=== PATIENT | male | born 1985 | race Caucasian/White ===

== ENCOUNTER 2019-08-19 18:29 | Emergency (ER) | payer SELFPAY ==
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
[2019-08-19] MEDS ORDERED: TETANUS & DIPHTHERIA TOX,ADULT 0.5 ML VIAL ONE (20:17)
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
[2019-08-19 22:47] VITALS: BP 161/108; TEMP 98.1; O2SAT 100
== END 2019-08-19 20:22 | disposition home or self-care (01) ==
LOC: ER 18:29
DX: S13.4XXA Sprain of ligaments of cervical spine, initial encounter (principal); S60.511A Abrasion of right hand, initial encounter; V43.52XA Car driver injured in collision with other type car in traffic accident, initial encounter; W22.11XA Striking against or struck by driver side automobile airbag, initial encounter; Y93.89 Activity, other specified; Y92.410 Unspecified street and highway as the place of occurrence of the external cause; Z23 Encounter for immunization
CPT/HCPCS: 70450; 72125; 90471; 90714; 99284

== ENCOUNTER 2019-09-04 16:58 | Emergency (ER) | payer SELFPAY ==
--- NOTE | 2019-09-04 18:03 | ER ---
Nurse's Notes [facility] Name: Truong Zheng Age: 34 yrs Sex: Male : 1985 Arrival Date: 09/04/2019 Time: 17:00 Bed Waiting Private MD: Diagnosis: Presentation: 09/04 17:20 Presenting complaint: Patient states: "I suddenly just felt tired about 2 hours ago. ca1 Blurry vision on my R eye earlier for about 10 minutes but not right now anymore". Reports headache on the R side. Denies nausea and dizziness. Transition of care: patient was not received from another setting of care. Onset of symptoms was September 04, 2019. Risk Assessment: Do you want to hurt yourself or someone else? Patient reports no desire to harm self or others. Initial Sepsis Screen: Does the patient meet any 2 criteria? No. Patient's initial sepsis screen is negative. Does the patient have a suspected source of infection? No. Patient's initial sepsis screen is negative. Care prior to arrival: None. 17:20 Method Of Arrival: Ambulatory ca1 17:20 Acuity: CHICO 3 ca1 Historical: - Allergies: 17:24 No Known Allergies; ca1 - Home Meds: 17:24 None [Active]; ca1 - PMHx: 17:24 None; ca1 - PSHx: 17:24 None; ca1 - Immunization history:: Adult Immunizations not up to date, Flu vaccine is not up to date. - Social history:: Smoking status: Patient uses tobacco products, smokes one pack cigarettes per day. - Ebola Screening: : Patient negative for fever greater than or equal to 101.5 degrees Fahrenheit, and additional compatible Ebola Virus Disease symptoms Patient denies exposure to infectious person Patient denies travel to an Ebola-affected area in the 21 days before illness onset No symptoms or risks identified at this time. Assessment: 17:39 Reassessment: Called pt from the lobby . No Answer. ca1 17:54 Reassessment: Called from the lobby: No Answer. ca1 Vital Signs: 17:24 BP 142 / 85; Pulse 93; Resp 17 S; Temp 98.7(O); Pulse Ox 96% on R/A; Weight 95.25 kg ca1 (R); Height 5 ft. 8 in. (172.72 cm) (R); Pain 2/10; 17:24 Body Mass Index 31.93 (95.25 kg, 172.72 cm) ca1 ED Course: 17:00 Patient arrived in ED. mr 17:20 Lulu Arnold, RN is Primary Nurse. ca1 17:23 Triage completed. ca1 17:24 Arm band placed on right wrist. ca1 17:37 Humble Magana PA is PHCP. cp 17:37 Humble Braswell MD is Attending Physician. cp 17:58 No provider procedures requiring assistance completed. ss Administered Medications: No medications were administered Outcome: 17:58 Eloped from waiting room, before seeing physician ss 17:58 Patient left the ED. ss Signatures: Alayna RileyGhazal RN RN Humble Magana PA PA Lulu Arnold RN RN ca1 Corrections: (The following items were deleted from the chart) 17:28 17:20 Presenting complaint: Patient states: "I suddenly just felt tired about 2 hours ca1 ago. Blurry vision on my R eye earlier for about 10 minutes but not right now anymore". Reports headache on the R side. Denies nausea and dizziness. ca1
[2019-09-04 19:42] VITALS: BP 142/85; TEMP 98.7; O2SAT 96
== END 2019-09-04 17:58 | disposition left against medical advice (07) ==
LOC: ER 16:58
DX: Z53.21 Procedure and treatment not carried out due to patient leaving prior to being seen by health care provider (principal)
CPT/HCPCS: 99281

== ENCOUNTER 2023-11-07 15:01 | Inpatient (IN) | payer SELFPAY ==
--- OUTSIDE RECORDS SUMMARY | 2023-11-07 15:04 | XMS REPORT | Continuity of Care Document ---
Author Name Unknown Address [address] [facility] [address] [place] [id number] [facility] thconnect Address [address] [facility] [address] [facility] [address] [place] [address] Care Team Providers Care Military Pay Clerk Name Role Phone PCP, PATIENT DOES NOT HAVE A Primary Care Physic bijan Unavailable ALON RAINES Attending Clinician Unavailable Alon Raines MD Attending Clinician ALON RAINES Admitting Clinician Unavailable Allergies, Adverse Reactions, Alerts Allergy Name Allergy Type Status Severity Reaction(s) Onset Date Inactive Date Treating Clinician Comments Source NO KNOWN ALLERGIE S Drug Class Active [facility] Social History Social Habit Start Date Stop Date Quantity Comments Source Sexual orientation [facility] Sex Assigned At 1985 00:00:00 1985 00:00:00 [facility] Smoking Status Start Date Stop Date Source Tobacco smoking consumption unknown [facility] Medications Ordered Medication Name Filled Medication Name Start Date Stop Date Current Medication? Ordering Clinician Indication Dosage Frequency Signature (SIG) Comments Components Source iopamidol (ISOVUE 370-500 mL) injection 85 mL 10-30 05:00: 00 10-30 05:00 :00 No [id number] 2 85mL 85 mL, Intravenou s, ONCE, 1 dose, On Thu10/30/23 at 2300, Routine [facility] Vital Signs Vital Name Observation Time Observation Value Comments S ource Systolic blood pressure 2023-10-31 05:00:00 128 mm[Hg] [facility] Diastolic blood pressure 2023-10-31 05:00:00 84 mm[Hg] [facility] Heart rate 2023-10-31 05:00:00 68 /min [facility] Respiratory rate 2023-10-31 05:00:00 18 /min [facility] Oxygen saturation in Arterial blood by Pulse oximetry 2023-10-31 05:00:00 95 /min [facility] Body temperature 2023-10-31 00:27:00 37.28 [facility] Body height 2023-10-31 00:27:00 172.7 cm [facility] Body weight 2023-10-31 00:27:00 95.255 kg [facility] BMI 2023-10-31 00:27:00 31.93 kg/m2 [facility] Procedures Procedure Date / Time Performed Performing Clinicia n Source CT ANGIOGRAM HEAD 2023-10-31 04:08:21 Alon Raines [facility] CT ANGIOGRAM NECK 2023-10-31 04:08:21 Alon Raines [facility] MAGNESIUM 2023-10-31 02:00:00 Alon Raines [facility] COMP. METABOLIC PANEL ([id number]) 2023-10-31 02:00:00 Alon Raines [facility] CBC WITH DIFF 2023-10-31 02:00:00 Alon Raines [facility] POCT GLUCOSE(AGE >30DAYS) 2023-10-31 02:00:00 Alon Raines [facility] POCT GLUCOSE (AUTOMATED) 2023-10-31 01:57:00 Doctor Unassigned, [place] [facility] CONSENT/REFUSAL FOR DIAGNOSIS AND TREATMENT 2023-10-31 00:23:53 Doctor Unassigned, [place] [facility] Encounters Start Date/Time End Date/Time Encounter Type Admission Type Attending Clinicians Care Facility Care Department Encounter ID Source 2023-10-30 18:31:00 2023-10-31 00:10:00 Emergency X ALON RAINES [facility] ERT [id number] [facility] 2023-10-30 18:31:00 2023-10-31 00:10:00 Emergency Alon Raines [facility] [id number] [facility] Results Test Description Test Time Test Comments Results Resul t Comments Source CT ANGIOGRAM NECK 2 05:24:18 CT ANGIOGRAM HEAD, CT ANGIOGRAM NECK HISTORY: Transient ischemic attack (TIA), right extremity and facialnumbness. TECHNIQUE: Axial CT imaging of the head and neck was obtained after theadministration of contrast. Coronal and sagittal reformats wereconstructed. COMPARISON: ?Same day noncontrast CT head. FINDINGS: CTA HEAD Slight left vertebral dominance. The PICA origin is visualized bilaterally.Extradura l right PICA origin. The basilar artery is normal in caliber. Thesuperior cerebellar arteries are unremarkable. The posterior cerebralarteries are unremarkable. No sizable posterior communicating arteries arevisualized. The distal cervical, petrous, cavernous and supraclinoid internal carotidarteries are patent. Minimal atherosclerotic plaques at the left cavernousICA. The anterior and middle cerebral arteries are unremarkable. Ananterior communicating artery is visualized. The dural venous sinuses are patent. CTA NECK Classic three-vessel branching anatomy of the aortic arch. The ostia ofmajor vessels are free of stenosis. The common carotids and internal carotids are visualized and patent. Noluminal narrowing or measurable stenosis by NASCET classification. The vertebral arteries originate from subclavian arteries and are patentthroughout their entire cervical length. The ostia are free of stenosis.Mild redundancy of right V2 vertebral artery at C3-C4 level (12:73). Cervical soft tissues: Nonspecific mildly prominent lymph nodes throughoutthe cervical spaces on both sides, probably reactive. Mildly prominentpalatine tonsils and adenoids for patient's age. Scattered multiple dental cavities. Lung apices: Mild central bronchial wall thickening, right greater thanleft, possibly mild bronchitis type changes. Suspected mild dilation of thepulmonary trunk. Cervical spine: Straightening of normal cervical lordosis. Milduncovertebral hypertrophy at C3-C4 and C5-C6 levels. [facility] CT ANGIOGRAM HEAD 2024-03-0 2 05:24:18 CT ANGIOGRAM HEAD, CT ANGIOGRAM NECK HISTORY: Transient ischemic attack (TIA), right extremity and facialnumbness. TECHNIQUE: Axial CT imaging of the head and neck was obtained after theadministration of contrast. Coronal and sagittal reformats wereconstructed. COMPARISON: ?Same day noncontrast CT head. FINDINGS: CTA HEAD Slight left vertebral dominance. The PICA origin is visualized bilaterally.Extradura l right PICA origin. The basilar artery is normal in caliber. Thesuperior cerebellar arteries are unremarkable. The posterior cerebralarteries are unremarkable. No sizable posterior communicating arteries arevisualized. The distal cervical, petrous, cavernous and supraclinoid internal carotidarteries are patent. Minimal atherosclerotic plaques at the left cavernousICA. The anterior and middle cerebral arteries are unremarkable. Ananterior communicating artery is visualized. The dural venous sinuses are patent. CTA NECK Classic three-vessel branching anatomy of the aortic arch. The ostia ofmajor vessels are free of stenosis. The common carotids and internal carotids are visualized and patent. Noluminal narrowing or measurable stenosis by NASCET classification. The vertebral arteries originate from subclavian arteries and are patentthroughout their entire cervical length. The ostia are free of stenosis.Mild redundancy of right V2 vertebral artery at C3-C4 level (12:73). Cervical soft tissues: Nonspecific mildly prominent lymph nodes throughoutthe cervical spaces on both sides, probably reactive. Mildly prominentpalatine tonsils and adenoids for patient's age. Scattered multiple dental cavities. Lung apices: Mild central bronchial wall thickening, right greater thanleft, possibly mild bronchitis type changes. Suspected mild dilation of thepulmonary trunk. Cervical spine: Straightening of normal cervical lordosis. Milduncovertebral hypertrophy at C3-C4 and C5-C6 levels. [facility] ([id number])2023-10-31 02:56:44* Test Item Value Reference Range Interpretation Comme nts NA (test code = 9807961757) 142 mmol/L 135-145 K (test code = 1658211794) 3.7 mmol/L 3.5-5.0 CL (test code = 6144136146) 105 mmol/L 98-108 CO2 TOTAL (test code = 2171910142) 28 mmol/L 23-31 AGAP (test code = 9053173606) 9 2-16 BUN (test code = 2195612771) 14 mg/dL 7-23 GLUCOSE (test code = 5804350759) 93 mg/dL 70-110 CREATININE (test code = 2160-0) 0.79 mg/dL 0.60-1.25 TOTAL BILI (test code = 8641201967) 0.4 mg/dL 0.1-1.1 CALCIUM (test code = 9291864891) 9.7 mg/dL 8.6-10.6 T PROTEIN (test code = 3382273161) 8.6 g/dL 6.3-8.2 H ALBUMIN (test code = 8229973413) 5.0 g/dL 3.5-5.0 ALK PHOS (test code = 7194129155) 48 U/L 34-122 ALTv (test code = 1742-6) 68 U/L 5-50 H AST(SGOT) (test code = 4585061062) 36 U/L 13-40 eGFR (test code = 81870-7) 115.9 mL/min/1.73m2 CKD-EPI eGFR (2020). Assuming creatinine has been stable day-to-day for at least three months, the eGFR indicates Category G1 (>= 90 mL/min/1.73 m2) Lab Interpretation (test code = 77967-4) Abnormal [facility] GLUCOSE(AGE >30DAYS)2023-10-31 02:00:00* Test Item Value Reference Range Interpretation Comme nts POCT Glu (age>30days) (test code = 3342) 98 mg/dL 70-110 Lab Interpretation (test cod e = 91063-0) Normal [facility] GLUCOSE (AUTOMATED)2023-10-31 01:59:35* Test Item Value Reference Range Interpretation Comme nts POCT GLU (test code = 4731359659) 98 mg/dL 70-110 Lab Interpretation (test cod e = 79672-4) Normal [facility] Notes Date/Time Note Provider Source 2023-10-30 23:59:05 rurKPfBQndwW68F3IiQl a2UFECzxGj7J8W tw9H8Te1+5r7r0QMcqG7028pJiJKfl2056 -03-01T23:59:05 Pt discharged home following ERP eval. Pt given all education and information regarding s/s of worsening condition as well as the importance of follow up, pt verbalized understanding. Alert and ambulatory to pov with family, vss. No further concerns. 49736-2Oadkyirzv department XighXR6998-89-90D18:00:30[facility] [id number] .[id number] for patient eydv01276-1UtkaZCEPPHAKRIUAliqekaj d C-CDA narrative [id number] A Paul RN[address][id number] 04AZSBZWWROZMUJFULCPEWEQ4870-49-99 T00:00:301.2.840.211586.1.72.3.15| [id number] John Underwood RN [facility] 2023-10-30 18:25:06 Ve2kOjPXcIqJdbhAN7TI mJE65bsOy9+Xcs cyagEtMu4Y5RjeVNPetHGoUZSL5yNj5047 -03-01T18:25:06 Patient reports that approx 20 minutes prior to arrival patient began to have right leg numbness which progressed to right arm numbness and then to his face. Patient states that he began to feel lightheaded. Patient was with brother Niall who states that patient was able to talk during this time and was able to move both of his arms and squeeze. He had patient stick out tongue and noticed no problems. At triage patient ambulating with a steady gait and able to move all extremitiesMed Hx: None 54616-1Rawfhcyas department Triage ovirDW1083-03-49U27:27:22[facility] Triage [id number] .[id number] for patient arfr83739-4Vgetntfau department NoteLNNARRATIVEFormatted C-CDA narrative textUT88 Martin StreetMm[id number] 95NJCODZMLPVYMWZAFOXASBL5608-97-68 T18:27:221.2.840.047487.1.72.3.15| [id number] [facility]"
[2023-11-07] MEDS ORDERED: NA CHLORIDE 0.9% 1,000 ML ONE (15:16)
[2023-11-07 15:34] LABS: Absolute Basophils 0.1 K/uL (0-0.5); Absolute Eosinophils 0.2 K/uL (0-0.5); Absolute Lymphocytes (CBC) 5.5 K/uL (0.7-4.9); Absolute Monocytes 0.9 K/uL (0.1-1.3); Absolute Neutrophil 7.9 K/uL (1.8-8.0); Basophils % 0.6 % (0-1.3); Eosinophils % 1.5 % (0-4.4); Hematocrit 42.3 % (39.6-49.0); Hemoglobin 14.4 g/dL (13.6-17.9); Lymphocytes % 37.8 % (15.3-44.8); MCH 31.3 pg (27.0-35.0); MCV 92.1 fL (80-100); Monocytes % 5.9 % (3.3-12.3); Neutrophils % 54.2 % (41.7-73.7); Platelets 393 thou/uL (152-406); RBC Red Blood Cell Count 4.59 M/uL (4.33-5.43); Red Cell Distribution Width 14.3 % (12.1-15.2)
[2023-11-07 15:44] LABS: PT Prothrombin Time 11.1 SECONDS (9.5-12.5); Protime INR 1.01
[2023-11-07 16:02] LABS: ALT/SGPT 62 U/L (16-61); AST/SGOT 25 U/L (15-37); Albumin/Globulin Ratio 1.1 (1.1-1.8); Alkaline Phosphatase 42 U/L (45-117); Anion Gap 7.7 mEq/L (5.0-15.0); BUN Blood Urea Nitrogen 21 mg/dL (7-18); Bicarbonate 26 mEq/L (21-32); Bilirubin Total 0.2 mg/dL (0.2-1.0); Globulin 3.6 g/dL (2.3-3.5); Glomerular Filtration Rate 94 ml/min (=/>90); Glucose Level 120 mg/dL (74-106); Lipase 23 U/L (13-75); Magnesium 2.1 mg/dL (1.6-2.4); NT PRO-BNP 15 pg/mL (<125); Potassium 3.7 mEq/L (3.5-5.1); Protein, Total 7.6 g/dL (6.4-8.2); Sodium Level 139 mEq/L (136-145); Troponin High Sensitivity 4.4 pg/mL (<58.9)
[2023-11-07 16:10] LABS: Bilirubin Direct < 0.1 mg/dL (0-0.2); Bilirubin Indirect, Calculated ND mg/dL (0.2-0.8)
--- NOTE | 2023-11-07 16:17 | RAD REPORT ---
EXAM DESCRIPTION: RAD - Chest Single View - 11/07/2023 3:58 pm CLINICAL HISTORY: CHEST PAIN COMPARISON: No comparisons FINDINGS: Lines: None. Lungs: No evidence of edema or pneumonia. Pleural: No significant pleural effusions or pneumothorax. Cardiac: The heart size is within normal limits. Mediastinum: Within normal limits. Bones: No acute fractures. Other: None IMPRESSION: No acute cardiopulmonary disease.
--- NOTE | 2023-11-07 16:43 | RAD REPORT ---
EXAM DESCRIPTION: CT - Head Brain Wo Cont - 11/07/2023 4:32 pm CLINICAL HISTORY: Dizziness;Headache COMPARISON: No comparisons TECHNIQUE: All CT scans are performed using dose optimization technique as appropriate and may inclu de automated exposure control or mA/KV adjustment according to patient size. FINDINGS: No intracranial hemorrhage, hydrocephalus or extra-axial fluid collection.No areas of brai n edema or evidence of midline shift. The paranasal sinuses and mastoids are clear. The calvarium is intact. IMPRESSION: No acute intracranial abnormality.
--- NOTE | 2023-11-07 16:55 | RAD REPORT ---
EXAM DESCRIPTION: CTAngio Aorta For Dissection - 11/07/2023 4:41 pm CLINICAL HISTORY: pe;Dissection COMPARISON: No comparisons TECHNIQUE: CTA of the chest, abdomen, and pelvis was performed. 3D maximum intensity pixel (MIP) rec onstructions were created of the aorta. All CT scans are performed using dose optimization technique as appropriate and may include automated exposure control or mA/KV adjustment according to patient size. FINDINGS: Thorax: Chest Wall: No abnormal mass Lungs: No acute abnormality. Calcified left lower lobe nodules . Pleura: No effusions or pneumothorax. Emelyn/Mediastinum: No lymphadenopathy. Aorta/Pulmonary Arteries: Unremarkable. Specifically, no aortic aneurysm or dissection. No central pu lmonary embolus. Heart: Normal size. Abdomen/Pelvis: Liver: High attenuation lesion left hepatic lobe likely reflecting a small flash fill hemangioma. Hep atic steatosis. Biliary: No biliary ductal dilatation. Stomach: No significant focal abnormality. Duodenum: No significant focal abnormality. Pancreas: No significant abnormality. Spleen: No significant abnormality. Adrenal: No suspicious lesions. Kidney/ureter: No hydronephrosis. No renal calculi. Retroperitoneum: No retroperitoneal adenopathy. Vascular: No aneurysm. Atherosclerosis. Bowel: No significant focal abnormality. The appendix . Peritoneum: No ascites or free air. Fat containing right inguinal hernia Bladder: Grossly unremarkable. Reproductive: No adnexal masses. Bones: No acute fracture. Other: n/a IMPRESSION: No aortic aneurysm or dissection identified. No central pulmonary embolus. No acute find ings within the chest, abdomen, or pelvis. Incidental findings as noted above.
[2023-11-07 17:00] LABS: Specific Gravity 1.028 (1.005-1.030); Urine Bilirubin NEGATIVE (Negative); Urine Blood Negative (Negative); Urine Clarity Clear (Clear); Urine Color Colorless (Yellow); Urine Glucose NEGATIVE (Negative); Urine Protein NEGATIVE (Negative); Urine Urobilinogen Normal (Normal); Urine pH 7.5 (5.0-7.0)
[2023-11-07 17:10] LABS: Barbiturates NEGATIVE (NEGATIVE); Benzodiazepines NEGATIVE (NEGATIVE); Cocaine NEGATIVE (NEGATIVE); METHAMPHETAM NEGATIVE (NEGATIVE); Methadone NEGATIVE (NEGATIVE); Opiates NEGATIVE (NEGATIVE); Phencyclidine NEGATIVE (NEGATIVE); THC Cannibis NEGATIVE (NEGATIVE)
--- NOTE | 2023-11-07 17:13 | ER ---
Nurse's Notes [facility] Name: Truong Zheng Age: 38 yrs Sex: Male : 1985 Arrival Date: 11/07/2023 Time: 15:01 Bed 19 Private MD: Diagnosis: Chest pain, unspecified;Abnormal electrocardiogram [ECG] [EKG];Elevated white blood cell count Presentation: 11/06 15:15 Chief complaint: Left sided chest pain x 4 days. Intermittent left sided numbness and hb weakness x 1 week. Coronavirus screen: At this time, the client does not indicate any symptoms associated with coronavirus-19. Ebola Screen: No symptoms or risks identified at this time. Initial Sepsis Screen: Does the patient meet any 2 criteria? No. Patient's initial sepsis screen is negative. Does the patient have a suspected source of infection? No. Patient's initial sepsis screen is negative. Risk Assessment: Do you want to hurt yourself or someone else? Patient reports no desire to harm self or others. Onset of symptoms was October 30, 2023. 15:15 Method Of Arrival: Ambulatory hb 15:15 Acuity: CHICO 3 hb Triage Assessment: 15:17 General: Appears in no apparent distress. Behavior is calm, cooperative. Pain: Pain hb currently is 5 out of 10 on a pain scale. Neuro: Level of Consciousness is awake, alert, obeys commands, Oriented to person, place, time, situation. Cardiovascular: Reports chest pain, Patient's skin is warm and dry. Respiratory: Respiratory effort is even, unlabored, Respiratory pattern is regular, symmetrical. Historical: - Allergies: 15:17 No Known Allergies; hb - Home Meds: 15:17 None [Active]; hb - PMHx: 15:17 None; hb - PSHx: 15:17 None; hb - Immunization history:: Adult Immunizations up to date. - Social history:: Smoking status: Patient reports the use of cigarette tobacco products. Screenin:27 [facility] ED Fall Risk Assessment (Adult) History of falling in the last 3 months, as6 including since admission No falls in past 3 months (0 pts) Confusion or Disorientation No (0 pts) Intoxicated or Sedated No (0 pts) Impaired Gait No (0 pts) Mobility Assist Device Used No (0 pt) Altered Elimination No (0 pt) Score/Fall Risk Level 0 - 2 = Low Risk Oriented to surroundings, Maintained a safe environment, Educated pt \T\ family on fall prevention, incl call for assistance when getting out of bed, Assessed \T\ reinforced patient's understanding of fall precautions, Hourly rounding (assess needs \T\ fall precautionary measures) done. Abuse screen: Denies threats or abuse. Denies injuries from another. Nutritional screening: No deficits noted. Tuberculosis screening: No symptoms or risk factors identified. Assessment: 15:27 General: Appears in no apparent distress. comfortable, Behavior is calm, cooperative. as6 Pain: Complains of pain in chest. Pain: Pain does not radiate. Neuro: Level of Consciousness is awake, alert, obeys commands, Oriented to person, place, time, situation, Reports numbness in right arm, left arm, right leg and left leg. Cardiovascular: Reports chest pain. Cardiovascular: Capillary refill < 3 seconds Patient's skin is warm and dry. Respiratory: Airway is patent Trachea midline Respiratory effort is even, unlabored, Respiratory pattern is regular, symmetrical, Denies shortness of breath. GI: No deficits noted. No signs and/or symptoms were reported involving the gastrointestinal system. : No deficits noted. No signs and/or symptoms were reported regarding the genitourinary system. EENT: No deficits noted. No signs and/or symptoms were reported regarding the EENT system. Derm: Skin is intact, is healthy with good turgor. Musculoskeletal: Circulation, motion, and sensation intact. 16:08 Reassessment: Patient appears in no apparent distress at this time. Patient and/or as6 family updated on plan of care and expected duration. Pain level reassessed. Patient is alert, oriented x 3, equal unlabored respirations, skin warm/dry/pink. 17:09 Reassessment: Patient appears in no apparent distress at this time. as6 18:33 Reassessment: Patient appears in no apparent distress at this time. Patient and/or as6 family updated on plan of care and expected duration. Pain level reassessed. Patient is alert, oriented x 3, equal unlabored respirations, skin warm/dry/pink. 19:30 Reassessment: Patient appears in no apparent distress at this time. Patient and/or nj1 family updated on plan of care and expected duration. Pain level reassessed. Patient is alert, oriented x 3, equal unlabored respirations, skin warm/dry/pink. Vital Signs: 15:15 BP 176 / 96; Pulse 85; Resp 16; Temp 98.1; Pulse Ox 100% on R/A; Weight 97.07 kg; hb Height 5 ft. 8 in. ; Pain 5/10; 16:07 BP 132 / 75; Pulse 64; Resp 19 S; Pulse Ox 97% on R/A; as6 17:08 BP 163 / 92; Pulse 57; Resp 16 S; Pulse Ox 99% on R/A; as6 18:32 BP 132 / 87; Pulse 69; Resp 18 S; Pulse Ox 98% on R/A; as6 19:30 BP 121 / 78; Pulse 47; Resp 13; Pulse Ox 97% on R/A; Pain 3/10; nj1 15:15 Body Mass Index 32.54 (97.07 kg, 172.72 cm) hb 15:15 Pain Scale: Adult hb 19:30 Pain Scale: Adult nj1 ED Course: 14:58 EKG done, by ED staff, reviewed by Humble Braswell MD. hb 15:02 Patient arrived in ED. rg4 15:05 Humble Braswell MD is Attending Physician. erika 15:12 Chuck Peterson, KINGSLEY is Primary Nurse. as6 15:17 Triage completed. hb 15:17 Arm band placed on. hb 15:18 Patient maintains SpO2 saturation greater than 95% on room air. hb 15:27 Placed in gown. Bed in low position. Call light in reach. Side rails up X2. Client as6 placed on continuous cardiac and pulse oximetry monitoring. NIBP monitoring applied. crayon painter on. 15:27 Initial lab(s) drawn, by nh, sent to lab. Inserted saline lock: 20 gauge in right as6 antecubital area, using aseptic technique. Blood collected. 16:00 XRAY Chest (1 view) In Process Unspecified. EDMS 16:08 Warm blanket given. as6 16:34 CT Head Brain wo Cont In Process Unspecified. EDMS 16:43 CT Aorta for Dissection In Process Unspecified. EDMS 17:11 Shelton Norris MD is Hospitalizing Provider. [facility] 18:32 Provided Education on: need for admit. as6 18:32 No provider procedures requiring assistance completed. Patient admitted, IV remains in as6 place. Administered Medications: 15:26 Drug: NS 0.9% IV 1000 ml IV at 125 ml/hr continuous Route: IV; Rate: 125 ml/hr; Site: as6 right antecubital; 18:31 Follow up: Response: No adverse reaction; IV Status: Infusion continued upon admission; as6 IV Intake: 300ml 17:36 Drug: Aspirin PO Chewable Tablet 324 mg PO once; 81 mg tablets x 4 Route: PO; as6 18:31 Follow up: Response: No adverse reaction as6 17:36 Drug: Famotidine IVP 20 mg IVP once; dilute with 10 mL 0.9% NaCl; give over 2 minutes as6 Route: IVP; Site: right antecubital; 18:31 Follow up: Response: No adverse reaction as6 17:37 Drug: Metoprolol PO 25 mg PO once Route: PO; as6 18:31 Follow up: Response: No adverse reaction as6 Medication: 15:27 VIS not applicable for this client. as6 Intake: 18:31 IV: 300ml; Total: 300ml. as6 Outcome: 17:13 Decision to Hospitalize by Provider. erika 18:32 Condition: stable as6 18:32 Instructed on the need for admit, 19:30 Admitted to Med/surg accompanied by tech, via wheelchair, room 219, Report called to razia Castelan RN 19:44 Patient left the ED. razia Signatures: Dispatcher [employer] EDUT Humble Braswell MD MD cha Baxter, Heather, Jolie Conway RN rg4 Chuck Peterson RN RN as6 Blanche Candelaria RN RN nj1
--- NOTE | 2023-11-07 17:13 | EDPHYS ---
Physician Documentation [facility] Name: Truong Zheng Age: 38 yrs Sex: Male : 1985 Arrival Date: 11/07/2023 Time: 15:01 Bed 19 Private MD: ED Physician Humble Braswell HPI: 11/06 15:38 This 38 yrs old Male presents to ER via Ambulatory with complaints of Chest erika Pain. 15:38 The patient or guardian reports pain. The complaints affect the right hand diffusely. erika Context: The problem was sustained at home, resulted from an unknown cause. Historical: - Allergies: 15:17 No Known Allergies; hb - Home Meds: 15:17 None [Active]; hb - PMHx: 15:17 None; hb - PSHx: 15:17 None; hb - Immunization history:: Adult Immunizations up to date. - Social history:: Smoking status: Patient reports the use of cigarette tobacco products. ROS: 15:39 Constitutional: Negative for fever, chills, and weight loss, Eyes: Negative for injury, erika pain, redness, and discharge, ENT: Negative for injury, pain, and discharge, Neck: Negative for injury, pain, and swelling, Respiratory: Negative for shortness of breath, cough, wheezing, and pleuritic chest pain, Abdomen/GI: Negative for abdominal pain, nausea, vomiting, diarrhea, and constipation, Back: Negative for injury and pain, : Negative for injury, bleeding, discharge, and swelling, MS/Extremity: Negative for injury and deformity, Skin: Negative for injury, rash, and discoloration, Neuro: Negative for headache, weakness, numbness, tingling, and seizure, Psych: Negative for depression, anxiety, suicide ideation, homicidal ideation, and hallucinations, Allergy/Immunology: Negative for hives, rash, and allergies, Endocrine: Negative for neck swelling, polydipsia, polyuria, polyphagia, and marked weight changes, Hematologic/Lymphatic: Negative for swollen nodes, abnormal bleeding, and unusual bruising, 15:39 Cardiovascular: Positive for chest pain, Exam: 15:39 Constitutional: This is a well developed, well nourished patient who is awake, alert, erika and in no acute distress. Head/Face: Normocephalic, atraumatic. Eyes: Pupils equal round and reactive to light, extra-ocular motions intact. Lids and lashes normal. Conjunctiva and sclera are non-icteric and not injected. Cornea within normal limits. Periorbital areas with no swelling, redness, or edema. ENT: Nares patent. No nasal discharge, no septal abnormalities noted. Tympanic membranes are normal and external auditory canals are clear. Oropharynx with no redness, swelling, or masses, exudates, or evidence of obstruction, uvula midline. Mucous membranes moist. Neck: Trachea midline, no thyromegaly or masses palpated, and no cervical lymphadenopathy. Supple, full range of motion without nuchal rigidity, or vertebral point tenderness. No Meningismus. Chest/axilla: Normal chest wall appearance and motion. Nontender with no deformity. No lesions are appreciated. Cardiovascular: Regular rate and rhythm with a normal S1 and S2. No gallops, murmurs, or rubs. Normal PMI, no JVD. No pulse deficits. Respiratory: Lungs have equal breath sounds bilaterally, clear to auscultation and percussion. No rales, rhonchi or wheezes noted. No increased work of breathing, no retractions or nasal flaring. Abdomen/GI: Soft, non-tender, with normal bowel sounds. No distension or tympany. No guarding or rebound. No evidence of tenderness throughout. Back: No spinal tenderness. No costovertebral tenderness. Full range of motion. Male : Normal genitalia with no discharge or lesions. Skin: Warm, dry with normal turgor. Normal color with no rashes, no lesions, and no evidence of cellulitis. MS/ Extremity: Pulses equal, no cyanosis. Neurovascular intact. Full, normal range of motion. Neuro: Awake and alert, GCS 15, oriented to person, place, time, and situation. Cranial nerves II-XII grossly intact. Motor strength 5/5 in all extremities. Sensory grossly intact. Cerebellar exam normal. Normal gait. Psych: Awake, alert, with orientation to person, place and time. Behavior, mood, and affect are within normal limits. 15:39 ECG was reviewed by the Attending Physician. 17:03 Radiologist reports: NEG erika Vital Signs: 15:15 BP 176 / 96; Pulse 85; Resp 16; Temp 98.1; Pulse Ox 100% on R/A; Weight 97.07 kg; hb Height 5 ft. 8 in. ; Pain 5/10; 16:07 BP 132 / 75; Pulse 64; Resp 19 S; Pulse Ox 97% on R/A; as6 17:08 BP 163 / 92; Pulse 57; Resp 16 S; Pulse Ox 99% on R/A; as6 18:32 BP 132 / 87; Pulse 69; Resp 18 S; Pulse Ox 98% on R/A; as6 19:30 BP 121 / 78; Pulse 47; Resp 13; Pulse Ox 97% on R/A; Pain 3/10; nj1 15:15 Body Mass Index 32.54 (97.07 kg, 172.72 cm) hb 15:15 Pain Scale: Adult hb 19:30 Pain Scale: Adult nj1 MDM: 15:05 Patient medically screened. erika 15:42 HEART Score: History: Slightly Suspicious (0), ECG: Non specific repolarization erika disturbance / LBTB / PM (1), Age: > 45 and < 65 years (1), Risk Factors: 1 or 2 risk factors (1), [Hypertension] [+ Family HX] Troponin: < or = 1 x Normal Limit (0). RICHARD Risk Score: TOTAL SCORE = 0. Data reviewed: vital signs, nurses notes, lab test result(s), EKG, radiologic studies, CT scan, plain films. Consideration of Admission/Observation Escalation of care including admission/observation considered. I considered the following discharge prescriptions or medication management in the emergency department Medications were administered in the Emergency Department. See 15:07 Order name: Basic Metabolic Panel; Complete Time: 16:12 [facility] 11/06 15:07 Order name: CBC with Diff; Complete Time: 15:46 [facility] 11/06 15:07 Order name: LFT's; Complete Time: 16:12 [facility] 11/06 15:07 Order name: Magnesium; Complete Time: 16:12 [facility] 11/06 15:07 Order name: NT PRO-BNP; Complete Time: 16:12 erika 11/06 15:07 Order name: PT-INR; Complete Time: 15:46 erika 11/06 15:07 Order name: Troponin HS; Complete Time: 16:12 erika 11/06 15:07 Order name: Lipase; Complete Time: 16:12 [facility] 11/06 15:07 Order name: Urinalysis w/ reflexes; Complete Time: 17:00 erika 11/06 15:07 Order name: UDS erika 11/06 17:39 Order name: Urinalysis w/ reflexes EDMS 11/06 17:39 Order name: Basic Metabolic Panel EDMS 11/06 17:39 Order name: Basic Metabolic Panel EDMS 11/06 17:39 Order name: CBC with Automated Diff EDMS 11/06 17:39 Order name: CBC with Automated Diff EDMS 11/06 17:39 Order name: Magnesium EDMS 11/06 17:39 Order name: Magnesium EDMS 11/06 17:39 Order name: Troponin High Sensitivity EDMS 11/06 17:39 Order name: Troponin High Sensitivity EDMS 11/06 17:39 Order name: Troponin High Sensitivity EDMS 11/06 17:39 Order name: Troponin High Sensitivity EDMS 11/06 17:41 Order name: Lipid Profile EDMS 11/06 17:41 Order name: Lipid Profile EDMS 11/06 15:07 Order name: XRAY Chest (1 view); Complete Time: 17:00 [facility] 11/06 15:07 Order name: CT Aorta for Dissection; Complete Time: 17:00 [facility] 11/06 15:07 Order name: CT Head Brain wo Cont; Complete Time: 17:00 [facility] 11/06 15:07 Order name: EKG; Complete Time: 15:08 [facility] 11/06 17:41 Order name: EKG Electrocardiogram EDWA 11/06 17:41 Order name: EKG Electrocardiogram EDWA 11/06 15:07 Order name: Cardiac monitoring; Complete Time: 15:12 [facility] 11/06 15:07 Order name: EKG - Nurse/Tech; Complete Time: 15:12 [facility] 11/06 15:07 Order name: IV Saline Lock; Complete Time: 15:26 [facility] 11/06 15:07 Order name: Labs collected and sent; Complete Time: 15:26 [facility] 11/06 15:07 Order name: O2 Per Protocol; Complete Time: 15:13 [facility] 11/06 15:07 Order name: O2 Sat Monitoring; Complete Time: 15:13 [facility] EC:39 Rate is 74 beats/min. Rhythm is regular. QRS [place] is Normal. [place] interval is normal. QRS erika interval is normal. QT interval is normal. No Q waves. T waves are Normal. T waves are Inverted in leads II, aVF. No ST changes noted. Clinical impression: NSR w/ Non-specific ST/T Changes. Administered Medications: 15:26 Drug: NS 0.9% IV 1000 ml IV at 125 ml/hr continuous Route: IV; Rate: 125 ml/hr; Site: as6 right antecubital; 18:31 Follow up: Response: No adverse reaction; IV Status: Infusion continued upon admission; as6 IV Intake: 300ml 17:36 Drug: Aspirin PO Chewable Tablet 324 mg PO once; 81 mg tablets x 4 Route: PO; as6 18:31 Follow up: Response: No adverse reaction as6 17:36 Drug: Famotidine IVP 20 mg IVP once; dilute with 10 mL 0.9% NaCl; give over 2 minutes as6 Route: IVP; Site: right antecubital; 18:31 Follow up: Response: No adverse reaction as6 17:37 Drug: Metoprolol PO 25 mg PO once Route: PO; as6 18:31 Follow up: Response: No adverse reaction as6 Disposition Summary: 11/07/23 17:13 Hospitalization Ordered Notes: Hospitalization Status: Observation erika Provider: Shelton Norris cha Location: Telemetry/MedSurg (observation) erika Condition: Stable erika Problem: new erika Symptoms: have improved erika Bed/Room Type: Standard erika Room Assignment: 219(11/07/23 19:19) rv1 Diagnosis - Chest pain, unspecified erika - Abnormal electrocardiogram [ECG] [EKG] erika - Elevated white blood cell count erika Forms: - Medication Reconciliation Form erika - SBAR form erika - Leadership Thank You Letter erika Signatures: Dispatcher [employer] Humble Gunter MD MD cha Baxter, Heather, RN RN hb Slawson, Ashby, RN RN asAngelina Santo rv1 Corrections: (The following items were deleted from the chart) 19:19 17:13 erika rv1
[2023-11-07] MEDS ORDERED: ASPIRIN 81 MG CHEWABLE TABLET ONE (17:32)
[2023-11-07] MEDS ORDERED: METOPROLOL TAR 25 MG TAB ONE (17:32)
--- NOTE | 2023-11-07 17:32 | P.HP ---
Certification for Inpatient Patient admitted to: Observation With expected LOS: <2 Midnights <Swati Ricci - Last Filed: 11/07/23 17:57> Patient History Date of Service: 11/07/23 Reason for admission: Chest pain History of Present Illness: 38-year-old male presents to the ER with chest pain. He reports chest pain substernal, he reports left sidede numbess this week, arm, leg, that resolved, he denies injury, no reported, dizziness, nausea vomiting diarrhea plan to admit for chest pain rule out [place]. Hypertensive blood pressure 176/96,; Pulse 85; Resp 16; Temp 98.1; Pulse Ox 100% on R/A; Weight 97.07 kg; Height 5 ft. 8 in. ; Pain 5/10; EKG nonspecific ST changes 74 beats/min. Rhythm is regular. QRS [place] is Normal. [place] interval is normal. QRS interval is normal. QT interval is normal. No Q waves. T waves are Normal. T waves ar Inverted in leads II, aVF. No ST changes noted. Clinical impression: NSR w/ Non-specific ST/T Changes. Laboratory evaluation mild leukocytosis 14.60 transaminitis ALT 62 UA negative, UDS negative, chest x-rayMPRESSION: No acute cardiopulmonary disease. CT of the head IMPRESSION: No acute intracranial abnormality. CT chest rule out dissection IMPRESSION: No aortic aneurysm or dissection identified. No central pulmonary embolus. No acute findings within the chest, abdomen, or pelvis.Incidental findings as noted above. Troponin normal 4.4, BNP normal 15, lipase normal 23 - Past Medical/Surgical History Past Medical History: Patient denies medical history Past Surgical History: Patient denies surgical history - Social History Smoking Status: Current some day smoker Alcohol use: Yes CD- Drugs: No Caffeine use: Yes Place of Residence: Home <Swati Ricci - Last Filed: 11/07/23 17:57> Date of Service: 11/08/23 <Shelton Norris - Last Filed: 11/08/23 10:10> Allergies No Known Allergies Allergy (Unverified 07/22/12 22:07) Home Medications: NK [No Home Meds] 11/07/23 Review of Systems Per HPI <Swati Ricci - Last Filed: 11/07/23 17:57> Physical Examination - Physical Exam General: Alert, In no apparent distress, Oriented x3 HEENT: Atraumatic, Normocephalic Neck: Supple, JVD not distended Respiratory: Clear to auscultation bilaterally, Normal air movement Cardiovascular: No edema, Normal pulses Capillary refill: <2 Seconds Gastrointestinal: Normal bowel sounds, Soft and benign Musculoskeletal: No clubbing, No swelling Integumentary: No breakdown, No significant lesion Neurological: Normal speech, Normal strength at 5/5 x4 extr - Studies Laboratory Data (last 24 hrs) 11/07/23 11/07/23 11/07/23 15:23 15:23 15:23 WBC 14.60 H Hgb 14.4 Hct 42.3 Plt Count 393 PT 11.1 INR 1.01 Sodium 139 Potassium 3.7 BUN 21 H Creatinine 1.04 Glucose 120 H Magnesium 2.1 Total Bilirubin 0.2 AST 25 ALT 62 H Alkaline Phosphatase 42 L Lipase 23 <Swati Ricci - Last Filed: 11/07/23 17:57> - Studies Laboratory Data (last 24 hrs) 11/07/23 11/07/23 11/07/23 15:23 15:23 15:23 WBC 14.60 H Hgb 14.4 Hct 42.3 Plt Count 393 PT 11.1 INR 1.01 Sodium 139 Potassium 3.7 BUN 21 H Creatinine 1.04 Glucose 120 H Magnesium 2.1 Total Bilirubin 0.2 AST 25 ALT 62 H Alkaline Phosphatase 42 L Lipase 23 <Shelton Norris K - Last Filed: 11/08/23 10:10> Assessment and Plan - Plan Assessment plan Chest pain rule out [place] Abnormal EKG Telemetry, trend troponins,card consult chest x-rayMPRESSION: No acute cardiopulmonary disease. CT of the head IMPRESSION: No acute intracranial abnormality. CT chest rule out dissection IMPRESSION: No aortic aneurysm or dissection identified. No central pulmonary embolus. No acute findings within the chest, abdomen, or pelvis.Incidental findings as noted above. T roponin normal 4.4, BNP normal 15, lipase normal 23 left sided numbness resolved this week considerMRI mon, CT head neg Episodic hypertension blood pressure 176/96,; Pulse 85; Resp 16; Temp 98.1; Pulse Ox 100% on R/A; Weight 97.07 kg; Height 5 ft. 8 in. ; Pain 5/10; EKG nonspecific ST changes 74 beats/min. Rhythm is regular. QRS [place] is Normal. [place] interval is normal. QRS interval is normal. QT interval is normal. No Q waves. T waves are Normal. T waves ar Inverted in leads II, aVF. No ST changes noted. Clinical impression: NSR w/ Non-specific ST/T Changes. Leukocytosis unknown source Laboratory evaluation mild leukocytosis 14.60 Transaminitis transaminitis ALT 62 UA negative, UDS negative, Diet n.p.o. abdomen Full code DVT Lovenox Disposition Home independent prior to admission Discharge Plan: Home Plan to discharge in: 24 Hours - Advance Directives Does patient have a Living Will: No Does patient have a Durable POA for Healthcare: No - Code Status/Comfort Care Code Status: Full Code Critical Care: No Time Spent Managing Pts Care (In Minutes): 55 <Swati Ricci - Last Filed: 11/07/23 17:57> Physician Review Additional Text: Patient appears to have an atypical localized anterior wall chest pain no risk factors for coronary artery disease history of diabetes hypertension nonspecific changes on EKG troponins are negative at this chest pain quite some time also had a recent episode of right-sided numbness and paresthesia apparently he went to [facility] was fully evaluated no evidence of stroke or carotid artery stenosis he has no further episodes of weakness patient's urinalysis is negative drug screen is negative he does not drink alcohol or take drugs no prior history of strokes before <Shelton Norris - Last Filed: 11/08/23 10:10>
[2023-11-07] MEDS ORDERED: FAMOTIDINE 20 MG/2 ML VIAL IV ONE (17:33)
[2023-11-07] MEDS ORDERED: ONDANSETRON 4 MG/2 ML VIAL IV PRN (17:35)
[2023-11-07] MEDS ORDERED: NITROGLYCERIN 0.4 MG/TAB SL PRN (17:38)
[2023-11-07] MEDS ORDERED: MORPHINE 2 MG/ML SYR IV PRN (17:39)
[2023-11-07] MEDS: NA CHLORIDE 0.9% 1,000 ML IV SCH (18:00)
[2023-11-07] MEDS: carvediloL 3.125 MG TAB PO SCH (18:00)
[2023-11-07] MEDS: ATORVASTATIN 20 MG TAB PO SCH (20:49)
[2023-11-07] MEDS: PANTOPRAZOLE 40 MG INJ IVP SCH (20:49)
[2023-11-07] MEDS ORDERED: HYDROMORPHONE HCL 0.5 MG/0.5 ML INJ IV PRN (21:49)
[2023-11-07] MEDS: ZOLPIDEM TARTRATE 5 MG TABLET PO PRN (21:49)
[2023-11-07] MEDS: NICOTINE 7 MG/PAT TD SCH (22:00)
[2023-11-08 03:08] LABS: Absolute Basophils 0.1 K/uL (0-0.5); Absolute Eosinophils 0.3 K/uL (0-0.5); Absolute Lymphocytes (CBC) 5.2 K/uL (0.7-4.9); Absolute Monocytes 0.7 K/uL (0.1-1.3); Absolute Neutrophil 4.9 K/uL (1.8-8.0); Basophils % 0.6 % (0-1.3); Eosinophils % 2.8 % (0-4.4); Hematocrit 39.2 % (39.6-49.0); Hemoglobin 13.3 g/dL (13.6-17.9); Lymphocytes % 46.4 % (15.3-44.8); MCH 31.7 pg (27.0-35.0); MCV 93.1 fL (80-100); MPV 7.9 fL (7.6-11.3); Monocytes % 6.7 % (3.3-12.3); Neutrophils % 43.5 % (41.7-73.7); Nucleated Red Blood Cells % 0.1 % (0-0); Platelets 356 thou/uL (152-406); RBC Red Blood Cell Count 4.21 M/uL (4.33-5.43); Red Cell Distribution Width 14.1 % (12.1-15.2)
[2023-11-08 03:24] LABS: Anion Gap 8.7 mEq/L (5.0-15.0); Magnesium 2.3 mg/dL (1.6-2.4); Potassium 3.7 mEq/L (3.5-5.1)
--- NOTE | 2023-11-08 07:25 | P.PN ---
Subjective Date of Service: 11/08/23 Chief Complaint: Chest pain No reported chest pain overnight, no reported left-sided weakness NPO after MN for stress test in am - Physical Exam General: Alert, In no apparent distress, Oriented x3 HEENT: Atraumatic, Normocephalic Neck: Supple, JVD not distended Respiratory: Clear to auscultation bilaterally, Normal air movement Cardiovascular: No edema, Normal pulses Capillary refill: <2 Seconds Gastrointestinal: Normal bowel sounds, Soft and benign Musculoskeletal: No clubbing, No swelling Integumentary: No breakdown, No significant lesion Neurological: Normal speech, Normal strength at 5/5 x4 extr Review of Systems Per HPI Physical Examination - Vital Signs Temperature: 97.7 F Blood Pressure: 113/64 Pulse: 48 Respirations: 18 Pulse Ox (%): 95 - Studies Laboratory Data (last 24 hrs) 11/07/23 11/07/23 11/07/23 15:23 15:23 15:23 WBC 14.60 H Hgb 14.4 Hct 42.3 Plt Count 393 PT 11.1 INR 1.01 Sodium 139 Potassium 3.7 BUN 21 H Creatinine 1.04 Glucose 120 H Magnesium 2.1 Total Bilirubin 0.2 AST 25 ALT 62 H Alkaline Phosphatase 42 L Lipase 23 Assessment And Plan - Plan Assessment plan Chest pain rule out [place] Abnormal EKG Telemetry, trend troponins,card consult chest x-rayMPRESSION: No acute cardiopulmonary disease. CT of the head IMPRESSION: No acute intracranial abnormality. CT chest rule out dissection IMPRESSION: No aortic aneurysm or dissection identified. No central pulmonary embolus. No acute findings within the chest, abdomen, or pelvis.Incidental findings as noted above. T roponin normal 4.4, BNP normal 15, lipase normal 23 NPO after mn for stess test in am left sided numbness resolved this week considerMRI mon, CT head neg Episodic hypertension blood pressure 176/96,; Pulse 85; Resp 16; Temp 98.1; Pulse Ox 100% on R/A; Weight 97.07 kg; Height 5 ft. 8 in. ; Pain 5/10; EKG nonspecific ST changes 74 beats/min. Rhythm is regular. QRS [place] is Normal. [place] interval is normal. QRS interval is normal. QT interval is normal. No Q waves. T waves are Normal. T waves ar Inverted in leads II, aVF. No ST changes noted. Clinical impression: NSR w/ Non-specific ST/T Changes. Leukocytosis unknown source Laboratory evaluation mild leukocytosis 14.60 Transaminitis transaminitis ALT 62 UA negative, UDS negative, Diet n.p.o. abdomen Full code DVT Lovenox Disposition Home independent prior to admission Discharge Plan: Home - Code Status/Comfort Care Code Status: Full Code Critical Care: No Time Spent Managing PTS Care (In Minutes): 35
--- NOTE | 2023-11-08 07:27 | P.DS ---
Admission Date: 11/07/23 Discharge Date: 11/08/23 Disposition: ROUTINE DISCHARGE Reason for Admission: Chest pain Brief History of Present Illness: 38-year-old male presents to the ER with chest pain. He reports chest pain substernal, he reports left sidede numbess this week, arm, leg, that resolved, he denies injury, no reported, dizziness, nausea vomiting diarrhea plan to admit for chest pain rule out [place]. Hypertensive blood pressure 176/96,; Pulse 85; Resp 16; Temp 98.1; Pulse Ox 100% on R/A; Weight 97.07 kg; Height 5 ft. 8 in. ; Pain 5/10; EKG nonspecific ST changes 74 beats/min. Rhythm is regular. QRS [place] is Normal. [place] interval is normal. QRS interval is normal. QT interval is normal. No Q waves. T waves are Normal. T waves ar Inverted in leads II, aVF. No ST changes noted. Clinical impression: NSR w/ Non-specific ST/T Changes. Laboratory evaluation mild leukocytosis 14.60 transaminitis ALT 62 UA negative, UDS negative, chest x-rayMPRESSION: No acute cardiopulmonary disease. CT of the head IMPRESSION: No acute intracranial abnormality. CT chest rule out dissection IMPRESSION: No aortic aneurysm or dissection identified. No central pulmonary embolus. No acute findings within the chest, abdomen, or pelvis.Incidental findings as noted above. Troponin normal 4.4, BNP normal 15, lipase normal 23 - Physical Exam General: Alert, In no apparent distress, Oriented x3 HEENT: Atraumatic, Normocephalic Neck: Supple, JVD not distended Respiratory: Clear to auscultation bilaterally, Normal air movement Cardiovascular: No edema, Normal pulses Capillary refill: <2 Seconds Gastrointestinal: Normal bowel sounds, Soft and benign Musculoskeletal: No clubbing, No swelling Integumentary: No breakdown, No significant lesion Neurological: Normal speech, Normal strength at 5/5 x4 extr Hospital Course: 38 year-old female patient presented with chest pain. Was noted to have abnormal EKG. Evaluated by cardiology, serial troponins negative condition improved with as needed analgesics. P.o.-antihypertensives. Patient tolerating diet, stable for discharge to home with follow-up appointment with primary care physician, follow-up with cardiology for outpatient test PROBLEM: Chest pain Serial troponins negative Episodic hypertension Follow-up with cardiology for outpatient cardiology testing Continue home medicines as previously prescribed GOAL: Clear understanding of disease process INSTRUCTIONS: Physician Discharge Instructions: -DC IV and DC home -Follow-up with PCP in 1 to 2 weeks -Please call nursing station at [phone] if any nursing or medication questions -Return to the emergency room if symptoms worsen Diet: ADA, low sodium Activity: Fall precautions Vital Signs/Physical Exam: Temp Pulse Resp BP Pulse Ox 97.7 F 48 L 18 113/64 95 11/08/23 07:24 11/08/23 07:24 11/08/23 07:24 11/08/23 07:24 11/08/23 07:24 Laboratory Data at Discharge: WBC 11.20 thou/uL (4.3-10.9) H 11/08/23 01:57 Hgb 13.3 g/dL (13.6-17.9) L 11/08/23 01:57 Hct 39.2 % (39.6-49.0) L 11/08/23 01:57 Plt Count 356 thou/uL (152-406) 11/08/23 01:57 PT 11.1 SECONDS (9.5-12.5) 11/07/23 15:23 INR 1.01 11/07/23 15:23 Sodium 142 mEq/L (136-145) 11/08/23 01:57 Potassium 3.7 mEq/L (3.5-5.1) 11/08/23 01:57 BUN 17 mg/dL (7-18) 11/08/23 01:57 Creatinine 0.97 mg/dL (0.70-1.30) 11/08/23 01:57 Glucose 145 mg/dL (74-106) H 11/08/23 01:57 Magnesium 2.3 mg/dL (1.6-2.4) 11/08/23 01:57 Total Bilirubin 0.2 mg/dL (0.2-1.0) 11/07/23 15:23 AST 25 U/L (15-37) 11/07/23 15:23 ALT 62 U/L (16-61) H 11/07/23 15:23 Alkaline Phosphatase 42 U/L (45-117) L 11/07/23 15:23 Triglycerides 244 mg/dL (<150) H 11/08/23 01:57 Cholesterol 185 mg/dL (<200) 11/08/23 01:57 HDL Cholesterol 18 mg/dL (40-60) L 11/08/23 01:57 Cholesterol/HDL Ratio 10.28 11/08/23 01:57 Lipase 23 U/L (13-75) 11/07/23 15:23 Home Medications: NK [No Home Meds] 11/07/23 Diet: AHA Activity: Fall precautions Followup: NONE,NONE [Primary Care Provider] - Time spent managing pt's care (in minutes): 55
[2023-11-08] MEDS: POTASSIUM CL SA 10 MEQ TAB PO ONE (08:21)
[2023-11-08] MEDS: ASPIRIN 325 MG TAB PO SCH (08:22)
[2023-11-08 08:45] LABS: Specific Gravity 1.028 (1.005-1.030); Urine Bilirubin NEGATIVE (Negative); Urine Blood Negative (Negative); Urine Clarity Clear (Clear); Urine Color Light-Yellow (Yellow); Urine Glucose NEGATIVE (Negative); Urine Protein NEGATIVE (Negative); Urine Urobilinogen Normal (Normal); Urine pH 5.5 (5.0-7.0)
[2023-11-08] MEDS: NICOTINE 7 MG/PAT TD SCH (09:00)
--- NOTE | 2023-11-08 13:14 | P.CNS ---
Date of Consult: 11/08/23 Chief Complaint: Chest pain History of Present Illness: patient with PMH of tobacco abuse for more than 20 years with 1-2 packs per day, HLD presented with chest pain for the last 5 days, pressure sensation in the middle of the chest, no radiation, no aggravating or reliving factors. Allergies No Known Allergies Allergy (Unverified 07/22/12 22:07) Home Medications: NK [No Home Meds] 11/07/23 - Social History Smoking Status: Current every day smoker Alcohol use: Yes CD- Drugs: No Caffeine use: Yes Place of Residence: Home Review of Systems 10-point ROS is otherwise unremarkable Physical Examination Temp Pulse Resp BP Pulse Ox 97.8 F 60 16 133/73 96 11/08/23 12:00 11/08/23 12:00 11/08/23 12:00 11/08/23 12:00 11/08/23 12:00 General: Alert, Oriented x3 HEENT: Atraumatic Neck: Supple Respiratory: Clear to auscultation bilaterally Cardiovascular: No edema, Normal S1 S2 Gastrointestinal: Normal bowel sounds Laboratory Data (last 24 hrs) 11/07/23 11/07/23 11/07/23 15:23 15:23 15:23 WBC 14.60 H Hgb 14.4 Hct 42.3 Plt Count 393 PT 11.1 INR 1.01 Sodium 139 Potassium 3.7 BUN 21 H Creatinine 1.04 Glucose 120 H Magnesium 2.1 Total Bilirubin 0.2 AST 25 ALT 62 H Alkaline Phosphatase 42 L Lipase 23 - Problems (1) Chest pain Current Visit: Yes Status: Acute Plan: patient with risk factors of tobacco abuse and HLD. patient will benefit from stress test to rule out ischemia. NPO past midnight for exercise stress test in am lower ASA to 81 mg daily Continue lipitor 20 mg daily.
[2023-11-08 19:07] VITALS: BMI 31.4
[2023-11-08] MEDS: ACETAMINOPHEN 500 MG TAB PO PRN (21:10)
[2023-11-09] MEDS: POTASSIUM CL SA 10 MEQ TAB PO ONE (08:00)
[2023-11-09 08:36] LABS: Anion Gap 6.9 mEq/L (5.0-15.0); Potassium 3.9 mEq/L (3.5-5.1)
--- NOTE | 2023-11-09 11:52 | P.PN ---
Date of Service: 11/09/23 Subjective Date of Service: 11/09/23 Chief Complaint: Chest pain No reported chest pain overnight, no reported left-sided weakness, ambulatory around the unit without complaint NPO after MN for stress test in am - Stress test abnormal. Dr. Workman will take to tree tapping laborer in am. Review of Systems Per HPI Vital Signs: Reviewed Physical Exam General: Alert, In no apparent distress, Oriented x3 HEENT: Atraumatic, Normocephalic Neck: Supple, JVD not distended Respiratory: Clear to auscultation bilaterally, Normal air movement Cardiovascular: No edema, Normal pulses Capillary refill: <2 Seconds Gastrointestinal: Normal bowel sounds, Soft and benign Musculoskeletal: No clubbing, No swelling Integumentary: No breakdown, No significant lesion Neurological: Normal speech, Normal strength at 5/5 x4 extr - Plan Assessment plan Chest pain rule out [place] Abnormal EKG Telemetry, trend troponins,card consult chest x-ray - MPRESSION: No acute cardiopulmonary disease. CT of the head IMPRESSION: No acute intracranial abnormality. CT chest rule out dissection IMPRESSION: No aortic aneurysm or dissection neda ntified. No central pulmonary embolus. No acute findings within the chest, abdomen, or pelvis.Incidental findings as noted above. Troponin normal 4.4, BNP normal 15, lipase normal 23 Stress test abnormal today 11/09/23 NPO after mn for tree tapping laborer in am <Orquidea Mclean - Last Filed: 11/09/23 17:15> Patient scheduled for treadmill stress test today. Patient's treadmill stress test was abnormal and patient to get cardiac catheterization in the morning. <Alejandro Cat - Last Filed: 11/13/23 01:40>
[2023-11-10] MEDS: POTASSIUM CL SA 10 MEQ TAB PO ONE (10:57)
--- NOTE | 2023-11-10 13:09 | TREADMILL ---
70% H.R.: 127 85% H.R.: 154 90% H.R.: 163 100% H.R.: 181 DX: CHEST PAIN Date of Study: 11/09/23 Ht: 5' 9 " Wt: 213 lb 0 oz Consulting Physician: ASHLEY MEDICATIONS: ASPIRIN, LIPITOR, NITROSTAT, NICODERM HISTORY: PATIENT IS A SMOKER WITH HYPERTENSION PHYSICIAL EXAMINATION: RESTING B.P.: 151/97 RESTING H.R.: 66 RESTING EKG: SINUS RHYTHM, NON SPECIFIC T WAVE ABNORMALITY. PROTOCOL: YVAN EXERCISE TIME: 6:59 MAXIMUM HEART RATE: 156 86% OF PREDICTED B.P. AT PEAK STRESS: 254/97 H.R. AT 1 MINUTE POST EXERCISE: 96 IMPRESSION: TREADMILL STRESS TEST. NO CHEST PAIN. SHORTNESS OF BREATH WITH EXERTION THAT SUBSIDED IN RECOVERY. OCCASIONAL PREMATURE VENTRICULAR COMPLEXES NOTED. GREATER THAN 1MM ST DEPRESSION IN INFERIOR LATERAL LEAD SUGGESTIVE OF ISCHEMIA.
[2023-11-10] MEDS: SODIUM CHLORIDE 0.9% 10ML INJ IV PRN (21:17)
[2023-11-11] MEDS ORDERED: NITROGLYCERIN/D5W 50 MG/250 ML BTL IV ONE (06:40)
[2023-11-11] MEDS ORDERED: LIDOCAINE 1% 20 ML MDV ONE (06:40)
[2023-11-11] MEDS ORDERED: VERAPAMIL HCL 10 MG/4 ML VIAL IV ONE (06:40)
[2023-11-11] MEDS ORDERED: HEPA 1000U/500MLS 2,000 UNIT/1,000 ML BAG IV ONE (06:40)
[2023-11-11] MEDS ORDERED: FENTANYL CITR 100 MCG/2 ML ONE (06:42)
[2023-11-11] MEDS ORDERED: TICAGRELOR 90 MG TABLET PO ONE (06:43)
[2023-11-11] MEDS ORDERED: MIDAZOLAM HCL 2 MG/2 ML INJ ONE (06:43)
[2023-11-11] MEDS ORDERED: HEPARIN 10,000 UNIT/10 ML VIAL IV ONE (06:43)
[2023-11-11] MEDS ORDERED: NA CHLORIDE 0.9% 500 ML ONE (06:43)
[2023-11-11] MEDS ORDERED: HEPARIN 5000 UNIT/ML 1 ML VIAL ONE (06:43)
[2023-11-11] MEDS ORDERED: ASPIRIN 325 MG TAB ONE (06:44)
[2023-11-11] MEDS ORDERED: CLOPIDOGREL 75 MG TABLET ONE (06:44)
--- NOTE | 2023-11-11 07:33 | P.PN ---
Date of Service: 11/11/23 Subjective Date of Service: 11/11/23 Chief Complaint: Chest pain No reported chest pain overnight, no reported left-sided weakness, ambulatory around the unit without complaint Stress test abnormal. Dr. Workman will take to laboratory cureman at 0700 today Review of Systems Per HPI Vital Signs: Reviewed Physical Exam General: Alert, In no apparent distress, Oriented x3 HEENT: Atraumatic, Normocephalic Neck: Supple, JVD not distended Respiratory: Clear to auscultation bilaterally, Normal air movement Cardiovascular: No edema, Normal pulses Capillary refill: <2 Seconds Gastrointestinal: Normal bowel sounds, Soft and benign Musculoskeletal: No clubbing, No swelling Integumentary: No breakdown, No significant lesion Neurological: Normal speech, Normal strength at 5/5 x4 extr - Plan Assessment plan Chest pain rule out [place] Abnormal EKG card consult- Stress test abnormal, plan for [facility] chest x-ray - MPRESSION: No acute cardiopulmonary disease. CT of the head IMPRESSION: No acute intracranial abnormality. CT chest rule out dissection IMPRESSION: No aortic aneurysm or dissection identified. No central pulmonary embolus. No acute findings within the chest, abdomen, or pelvis.Incidental findings as noted above. Troponin normal 4.4, BNP normal 15, lipase normal 23 Stress test abnormal 11/09/23 Went to laboratory cureman for [facility] @ 0700 on 11/11/23 <Orquidea Mclean - Last Filed: 11/11/23 07:31> Please see discharge summary <Alejandro Cat - Last Filed: 11/13/23 01:40>
--- NOTE | 2023-11-11 07:35 | P.PN ---
Date of Service: 11/10/23 Subjective Date of Service: 11/10/23 Chief Complaint: Chest pain No reported chest pain overnight, no reported left-sided weakness, ambulatory around the unit without complaint Stress test abnormal. Dr. Workman will take to cath lab radiological technologist Review of Systems Per HPI Vital Signs: Reviewed Physical Exam General: Alert, In no apparent distress, Oriented x3 HEENT: Atraumatic, Normocephalic Neck: Supple, JVD not distended Respiratory: Clear to auscultation bilaterally, Normal air movement Cardiovascular: No edema, Normal pulses Capillary refill: <2 Seconds Gastrointestinal: Normal bowel sounds, Soft and benign Musculoskeletal: No clubbing, No swelling Integumentary: No breakdown, No significant lesion Neurological: Normal speech, Normal strength at 5/5 x4 extr - Plan Assessment plan Chest pain rule out [place] Abnormal EKG card consult- Stress test abnormal, plan for [facility] chest x-ray - MPRESSION: No acute cardiopulmonary disease. CT of the head IMPRESSION: No acute intracranial abnormality. CT chest rule out dissection IMPRESSION: No aortic aneurysm or dissection identified. No central pulmonary embolus. No acute findings within the chest, abdomen, or pelvis.Incidental findings as noted above. Troponin normal 4.4, BNP normal 15, lipase normal 23 Stress test abnormal 11/09/23 Awaiting cath lab radiological technologist for [facility] <Orquidea Mclean - Last Filed: 11/11/23 07:34> Patient seen examined and agree with plan of care as mentioned above. patient will get cardiac catheterization a.m.. <Alejandro Cat - Last Filed: 11/13/23 01:39>
--- NOTE | 2023-11-11 08:40 | P.PN ---
Subjective Date of Service: 11/11/23 Chief Complaint: Chest pain Subjective: No new changes Review of Systems 10-point ROS is otherwise unremarkable Physical Examination - Vital Signs Temperature: 97.8 F Blood Pressure: 134/67 Pulse: 66 Respirations: 18 Pulse Ox (%): 97 - Physical Exam General: Alert, Oriented x3 HEENT: Atraumatic Neck: Supple Respiratory: Clear to auscultation bilaterally Cardiovascular: No edema, Normal S1 S2 Gastrointestinal: Normal bowel sounds Assessment And Plan - Current Problems (Diagnosis) (1) Chest pain Current Visit: Yes Status: Acute Plan: Patient got an abnormal stress test that was followed by coronary angiogram today that shows normal coronaries. D/C ASA Continue lipitor 20 mg daily. No further cardiac work up needed.
[2023-11-11 10:00] VITALS: O2SAT 97
--- NOTE | 2023-11-11 10:24 | P.DS ---
Admission Date: 11/10/23 Discharge Date: 11/11/23 Reason for Admission: Chest pain Consultations: Cardiology Procedures: Stress test - abnormal Left Heart Cath - normal coronaries Brief History of Present Illness: 38-year-old male presents to the ER with chest pain. He reports chest pain substernal, he reports left sided numbness this week, arm, leg, that resolved, he denies injury, no reported, dizziness, nausea vomiting diarrhea plan to admit for chest pain rule out [place]. Hypertensive blood pressure 176/96,; Pulse 85; Resp 16; Temp 98.1; Pulse Ox 100% on R/A; Weight 97.07 kg; Height 5 ft. 8 in. ; Pain 5/10; EKG nonspecific ST changes 74 beats/min. Rhythm is regular. QRS [place] is Normal. [place] interval is normal. QRS interval is normal. QT interval is normal. No Q waves. T waves are Normal. T waves ar Inverted in leads II, aVF. No ST changes noted. Clinical impression: NSR w/ Non-specific ST/T Changes. Laboratory evaluation mild leukocytosis 14.60 transaminitis ALT 62 UA negative, UDS negative, chest x-rayMPRESSION: No acute cardiopulmonary disease. CT of the head IMPRESSION: No acute intracranial abnormality. CT chest rule out dissection IMPRESSION: No aortic aneurysm or dissection identified. No central pulmonary embolus. No acute findings within the chest, abdomen, or pelvis.Incidental findings as noted above. Troponin normal 4.4, BNP normal 15, lipase normal 23 Hospital Course: Mr. Zheng was admitted for chest pain rule out ACS. His troponin has been remains normal. He had an abnormal stress test so was scheduled for left cardiac cath which he underwent this morning. Dr. Rao states the coronary arteries are normal. He recommends continuation of Lipitor, discontinuation of aspirin, and follow-up with his primary care physician. He states no further cardiac follow up necessary at this time <Orquidea Mclean - Last Filed: 11/11/23 10:24> Admission Date: 11/07/23 ( November 07, 2023) Discharge Date: 11/11/23 Hospital Course: Patient's chart was reviewed. Patient's events during hospital stay were noted. Patient had a Treadmill stress test that was abnormal. Patient was taken for left heart catheterization with no abnormal findings. Patient continued to have some numbness to the left arm. We arranged for MRI C-spine. The C-spine images revealed mildly abnormal spondylosis and foraminal stenosis. Patient will follow-up as outpatient with PCP for further workup. <Alejandro Cat - Last Filed: 11/13/23 01:38> Disposition: ROUTINE DISCHARGE Discharge Condition: GOOD Vital Signs/Physical Exam: Temp Pulse Resp BP Pulse Ox 97.8 F 57 18 117/61 97 11/11/23 08:40 11/11/23 10:13 11/11/23 10:13 11/11/23 10:13 11/11/23 08:40 General: Alert, In no apparent distress, Oriented x3 HEENT: Atraumatic, Normocephalic, PERRLA Neck: Supple, 2+ carotid pulse no bruit Respiratory: Normal air movement Cardiovascular: Normal pulses, Regular rate/rhythm Capillary refill: <2 Seconds Gastrointestinal: Soft and benign Musculoskeletal: No clubbing, No swelling Integumentary: No rashes, No breakdown Neurological: Normal gait, Normal speech, Normal tone Lymphatics: No axilla or inguinal lymphadenopathy External genitalia: Deferred Rectal: Deferred Laboratory Data at Discharge: WBC 11.20 thou/uL (4.3-10.9) H 11/08/23 01:57 Hgb 13.3 g/dL (13.6-17.9) L 11/08/23 01:57 Hct 39.2 % (39.6-49.0) L 11/08/23 01:57 Plt Count 356 thou/uL (152-406) 11/08/23 01:57 PT 11.1 SECONDS (9.5-12.5) 11/07/23 15:23 INR 1.01 11/07/23 15:23 Sodium 140 mEq/L (136-145) 11/09/23 08:00 Potassium 3.9 mEq/L (3.5-5.1) 11/09/23 08:00 BUN 19 mg/dL (7-18) H 11/09/23 08:00 Creatinine 0.96 mg/dL (0.70-1.30) 11/09/23 08:00 Glucose 96 mg/dL (74-106) 11/09/23 08:00 Magnesium 2.3 mg/dL (1.6-2.4) 11/08/23 01:57 Total Bilirubin 0.2 mg/dL (0.2-1.0) 11/07/23 15:23 AST 25 U/L (15-37) 11/07/23 15:23 ALT 62 U/L (16-61) H 11/07/23 15:23 Alkaline Phosphatase 42 U/L (45-117) L 11/07/23 15:23 Triglycerides 244 mg/dL (<150) H 11/08/23 01:57 Cholesterol 185 mg/dL (<200) 11/08/23 01:57 HDL Cholesterol 18 mg/dL (40-60) L 11/08/23 01:57 Cholesterol/HDL Ratio 10.28 11/08/23 01:57 Lipase 23 U/L (13-75) 11/07/23 15:23 <Mclean,Orquidea Ankit - Last Filed: 11/11/23 10:24> Vital Signs/Physical Exam: Temp Pulse Resp BP Pulse Ox 97.0 F 69 20 159/92 H 98 11/11/23 16:00 11/11/23 16:00 11/11/23 16:00 11/11/23 16:00 11/11/23 16:00 Laboratory Data at Discharge: WBC 11.20 thou/uL (4.3-10.9) H 11/08/23 01:57 Hgb 13.3 g/dL (13.6-17.9) L 11/08/23 01:57 Hct 39.2 % (39.6-49.0) L 11/08/23 01:57 Plt Count 356 thou/uL (152-406) 11/08/23 01:57 PT 11.1 SECONDS (9.5-12.5) 11/07/23 15:23 INR 1.01 11/07/23 15:23 Sodium 140 mEq/L (136-145) 11/09/23 08:00 Potassium 3.9 mEq/L (3.5-5.1) 11/09/23 08:00 BUN 19 mg/dL (7-18) H 11/09/23 08:00 Creatinine 0.96 mg/dL (0.70-1.30) 11/09/23 08:00 Glucose 96 mg/dL (74-106) 11/09/23 08:00 Magnesium 2.3 mg/dL (1.6-2.4) 11/08/23 01:57 Total Bilirubin 0.2 mg/dL (0.2-1.0) 11/07/23 15:23 AST 25 U/L (15-37) 11/07/23 15:23 ALT 62 U/L (16-61) H 11/07/23 15:23 Alkaline Phosphatase 42 U/L (45-117) L 11/07/23 15:23 Triglycerides 244 mg/dL (<150) H 11/08/23 01:57 Cholesterol 185 mg/dL (<200) 11/08/23 01:57 HDL Cholesterol 18 mg/dL (40-60) L 11/08/23 01:57 Cholesterol/HDL Ratio 10.28 11/08/23 01:57 Lipase 23 U/L (13-75) 11/07/23 15:23 <Alejandro Cat - Last Filed: 11/13/23 01:38> Diet: AHA Activity: Fall precautions <Orquidea Mclean - Last Filed: 11/11/23 10:24> Time spent managing pt's care (in minutes): 35 <Alejandro Cat - Last Filed: 11/13/23 01:38> Home Medications: Atorvastatin Calcium [Lipitor*] 20 mg PO BEDTIME #30 tab 11/09/23 predniSONE [Deltasone] 20 mg PO BID #11 tab 11/11/23 New Medications: Atorvastatin Calcium [Lipitor*] 20 mg PO BEDTIME #30 tab predniSONE [Deltasone] 20 mg PO BID #11 tab Physician Discharge Instructions: -DC IV and DC home if cardiac cath is negative -Follow-up with PCP in 1 to 2 weeks -Please provide work release on discharge -Please call Dr. Cat at [phone] if any questions regarding hospital stay -Please call nursing station at [phone] if any nursing or medication questions -Return to the emergency room if symptoms worsen Followup: NONE,NONE [Primary Care Provider] - Giuliano Workman MD [ACTIVE - CAN ADMIT] -
[2023-11-11 13:04] LABS: Folic Acid, (Folate) 8.6 ng/mL (3.1-17.5)
[2023-11-11 17:17] VITALS: BP 159/92; TEMP 97
--- NOTE | 2023-11-11 21:08 | RAD REPORT ---
EXAM DESCRIPTION: MRI - C Spine Wo Cont - 11/11/2023 3:30 pm CLINICAL HISTORY: Left arm paresthesia COMPARISON: CT head and C-spine 08/19/2019. TECHNIQUE: Multiplanar multisequence MRI of the cervical spine, obtained without IV contrast. FINDINGS: Cervical vertebral bodies are normal in height, with straightening of normal cervical lord osis, could be positional or secondary to muscle spasm. No suspicious marrow edema or marrow replacin g process. Cerebellar tonsils and mid-line skull base show no suspicious finding. No significant finding at the C1 and C2 levels. C2-3 level: No significant findings. C3-4 level: Broad-based posterior disc bulge. Bilateral uncovertebral joint and facet arthropathy con tributing to [id number] neural foraminal narrowing. No significant central canal stenosis. C4-5 level: Mild posterior disc bulge. No significant central canal or foraminal stenosis. C5-6 level: Broad-based posterior disc bulge with superimposed small central disc extrusion. Facet ar thropathy with ligamentum flavum buckling and bilateral uncovertebral joint hypertrophy contribute to mild central canal stenosis with flattening of the ventral and dorsal aspects of the cord. Bilateral moderate neural foraminal narrowing. C6-7 level: Broad-based posterior disc bulge with superimposed right central disc extrusion contactin g the right ventral aspect of the cord. No central canal stenosis. Bilateral facet and uncovertebral joint arthropathy contribute to [id number] left and mild right neural foraminal narrowing. C7-T1 level: No significant findings. Cervical cord shows subtle central increased T2 signal opposite C5-6. No volume loss. No intra-axial or extra-axial masses. 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 Central mildly increased cord T2 signal opposite this level. Variable degrees of neural foraminal narrowing, up to moderate bilaterally at C5-6, and mild to moder ate bilaterally at C3-4 and on the left at C6-7. Suggestion of small disc bulges at C3-4 and C6-[address], which may be stable.
--- NOTE | 2023-11-13 17:48 | EKG ---
Test Date: 2023-11-07 Test Time: 14:58:13 Accelerator Technician: MEASUREMENT RESULTS: Intervals: Rate: 74 MI: 148 QRSD: 96 QT: 360 QTc: 399 [place]: P: 58 MI: 148 QRS: 79 T: -3 INTERPRETIVE STATEMENTS: Normal sinus rhythm with sinus arrhythmia Nonspecific T wave abnormality Abnormal ECG No previous ECG available for comparison Electronically Signed On 11-13-23 17:31:04 CDT by Giuliano Workman
== END 2023-11-11 19:34 | disposition home or self-care (01) | DRG 287 ==
LOC: ER 15:01 → ERHOLD 17:34 → 2ND 19:37 → OBSVTOIN 11-10 08:13
PROVIDERS: ADMIT Internal Medicine Sleep Medicine; ATTEND Hospitalist
PROC: 4A023N7 Measurement of Cardiac Sampling and Pressure, Left Heart, Percutaneous Approach (ICD-10-PCS; principal; 2023-11-11)
PROC: B2111ZZ Fluoroscopy of Multiple Coronary Arteries using Low Osmolar Contrast (ICD-10-PCS; 2023-11-11)
DX: R07.9 Chest pain, unspecified (principal); I10 Essential (primary) hypertension; E78.5 Hyperlipidemia, unspecified; D72.829 Elevated white blood cell count, unspecified; R74.01 Elevation of levels of liver transaminase levels; F17.210 Nicotine dependence, cigarettes, uncomplicated; Z79.899 Other long term (current) drug therapy
CPT/HCPCS: 36415; 70450; 71045; 71275; 72141; 74175; 76937; 80048; 80061; 80076; 80307; 81003; 82607; 82746; 83540; 83690; 83735; 83880; 84425; 84484; 85025; 85610; 93005; 93017; 93458; 96361; 96374; 99152; 99153; 99285; A4216; C1893; C9113; G0378; J1644; J2001; J2250; J3010; J7030; J7040; Q9966; Q9967